=== PATIENT | female | born 1935 | race Caucasian/White ===

== ENCOUNTER → 2017-12-07 | Outpatient (CLI) | payer OTHER ==
[~2017-12-07] MED LIST: ADULT LOW DOSE81 MG PO; CARVEDILOL6.25 MG PO; CLOTRIMAZOLE10 MG PO; IBUPROFEN 600600 M1 PO; LEVAQUIN 500 M500 M5 PO; MUCINEX DM TABL1 TA1 PO; NORCO 5-325 TA1 EACH PO; NORVASC 5 MG TAB5 MG PO; PREDNISONE 10 M10 M1 PO; PREDNISONE 20 M20 M1 PO; PROAIR HFA8.5 GM INH; SYNTHROID88 MCG PO; TESSALON PERLE100 MG PO; ZOCOR 20 MG TAB20 M1 PO
== END ==
LOC: M.ULTRA 12:45
DX: I70.213 Atherosclerosis of native arteries of extremities with intermittent claudication, bilateral legs (principal); M79.604 Pain in right leg; M79.605 Pain in left leg

== ENCOUNTER → 2018-07-19 | Day surgery (SDC) | payer OTHER ==
[~2018-07-19] MED LIST changes: +ARNUITY ELLIPT50 MCG INH; +NEURONTIN100 MG PO; +OMEPRAZOLE40 MG PO; +PRAVACHOL20 MG PO; +PROBIOTIC1 EAC1 PO; +PROZAC10 MG PO; +VITAMIN D3400 UNIT PO
[2018-07-19 09:25] LABS: HEMATOCRIT 36.4 % (37.0-47.0); HEMOGLOBIN 12.1 gm/dL (12.0-15.0); MCH 29.5 pg (26.0-34.0); MCHC 33.2 g/dL (28.0-37.0); MCV 88.8 fL (80.0-100.0); MPV 7.5 fl. (7.2-11.1); RBC 4.1 mil/uL (4.20-5.00); RDW-CV 14.9 % (10.5-14.5); WBC 7.1 thou/uL (4.0-11.0)
[2018-07-19 09:48] LABS: ALBUMIN 3.5 g/dL (3.4-5.0); CALCIUM 9.2 mg/dL (8.5-10.1); CREATININE 0.8 mg/dL (0.6-1.3); POTASSIUM 4.2 mmol/L (3.5-5.1); TOTAL BILIRUBIN 0.6 mg/dL (<0.1-1.0); TOTAL PROTEIN 7.8 g/dL (6.4-8.2)
--- NOTE | 2018-07-19 15:56 | EKG ---
[place] [address] ELECTROCARDIOGRAM REPORT Name: MERCEDES COX Room: [facility]#: [id number] Admission: 07/19/18 Attend Phys: Gabriel Blankenship DO Discharge: Date of : 33 Report #: [id number] THIS REPORT FOR: //name// [facility] Test Date: 2018-07-19 Test Time: 09:34:25 Pat Name: MERCEDES COX Department: Room: Gender: F [employer] Supervisor: : [id number] Requested By: Thom Jones Order Number: [id number] Krei MD: Jamar Angel Measurements Intervals [place] Rate: 60 P: [place]: 244 QRS: 27 QRSD: 126 T: -1 QT: 446 QTc: 446 Interpretive Statements Atrial-paced rhythm Right bundle branch block Compared to ECG 07/08/2006 06:04:05 Right bundle-branch block now present Sinus rhythm no longer present ST (T wave) deviation no longer present Electronically Signed On 07-19-2018 15:56:05 CDT by Jamar Angel [email or web address] <ELECTRONICALLY SIGNED> By: Jamar Angel MD, [facility] 07/19/18 1556 0934 Jamar Angle MD, [facility] /EPI
== END | disposition home or self-care (01) ==
LOC: M.SUR 06:24
PROVIDERS: Student in an Organized Health Care Education/Training Program
DX: K22.8 Other specified diseases of esophagus (principal); K44.9 Diaphragmatic hernia without obstruction or gangrene; I10 Essential (primary) hypertension; E78.5 Hyperlipidemia, unspecified; E03.9 Hypothyroidism, unspecified; D64.9 Anemia, unspecified; Z90.710 Acquired absence of both cervix and uterus; Z95.0 Presence of cardiac pacemaker; Z98.890 Other specified postprocedural states; Z95.2 Presence of prosthetic heart valve; Z79.899 Other long term (current) drug therapy